=== PATIENT | female | born 1995 | race Caucasian/White ===

== ENCOUNTER 2021-09-13 13:32 | Emergency (ER) | payer SELFPAY ==
[2021-09-13 14:10] VITALS: BP 115/75; PULSE 88; RESP 18; TEMP 36.9; O2SAT 100; BMI 34.9
[2021-09-13 15:03] LABS: Influenza A PCR POSITIVE (Negative); Influenza B PCR NEGATIVE (Negative); Resp Syncy Virus RNA Qual PCR NEGATIVE (Negative); SARS COV2 PCR INHOUSE NEGATIVE (Negative)
--- NOTE | 2021-09-13 15:32 | ED_ITS ---
HPI - URI/Sore Throat General Chief Complaint: Upper Respiratory Symptoms Stated Complaint: body aches, cough Time Seen by Provider: 09/13/21 15:10 Source: patient Mode of arrival: ambulatory Limitations: no limitations History of Present Illness HPI Narrative: 25-year-old female here with 3 days of nasal congestion, cough, wheezing. Patient feels body aches but no fevers, no chills, no abdominal pain or vomitin g. No shortness of breath or chest pain. Patient did not receive a flu vaccine. She is a smoker Related Data Previous Rx's Medication Instructions Recorded oseltamivir 75 mg capsule (Tamiflu) 75 mg PO BID 5 Days #10 cap 09/13/21 Allergies Allergy/AdvReac Type Severity Reaction Status Date / Time No Known Allergies Allergy Verified 09/13/21 15:19 Review of Systems Review of Systems: Yes all other systems are reviewed and are negative Constitutional: Constitutional: Reports no additional constitutional complaints, Reports body ache(s), Denies chills, Denies fever(s), Denies headache(s) and Denies weakness Eyes: Eyes: Reports no additional eye complaints and Denies change in vision ENT: Reports system reviewed and no additional complaints, except as documented, Denies dizziness, Denies headache(s), Reports nasal congestion, Denies nasal discharge and Denies neck pain Cardiovascular: Cardiovascular: Reports no additional cardiovascular complaints, Denies chest pain, Denies leg edema and Denies dyspnea Respiratory: Respiratory: Reports no additional respiratory complaints, Reports cough, Denies dyspnea and Reports wheezing Gastrointestinal: Gastrointestinal: Reports no additional gastrointestinal complaints, Denies abdominal pain, Denies diarrhea, Denies nausea and Denies vomiting Genitourinary: Genitourinary: Reports no additional female genitourinary complaints and Denies urinary incontinence Musculoskeletal: Musculoskeletal: Reports no additional musculoskeletal complaints, Denies back pain, Denies arthralgias, Denies joint swelling, Denies neck pain, Denies numbness and Denies tingling Integumentary/Breasts: Skin/Breast: Reports system reviewed and no additional complaints, except as docu and Denies rash Neurologic: Denies Abnormal speech present, Denies dizziness, Denies headache(s), Denies numbness, Denies tingling and Denies weakness Allergic/Immunologic: Allergic/Immunologic: Reports wheezing PMFSH Past Medical History Attestation statement: The following information was validated with the patient. Source: old records reviewed and nursing notes reviewed Social History Social History Advance Directives: No Advance Directives Information Provided: No Physical Exam Vital Signs: Vital Signs: Last Vital Signs Temp 98.4 F 09/13/21 14:10 Pulse 88 09/13/21 14:10 Resp 18 09/13/21 14:10 BP 115/75 09/13/21 14:10 Pulse Ox 100 09/13/21 14:10 BMI result Body Mass Index 34.9 Const: General: cooperative, healthy appearing, comfortable and no acute distress Orientation/consciousness: patient oriented x3 Limitations: no limitations HEENT: Head: Yes normal to inspection Ears: hearing grossly normal bilaterally General nose exam: Normal external nose present Face and sinus: Yes normal facial exam Mouth: Normal oral and palatal mucosa present Throat: Yes posterior oropharynx normal Eyes: General: appearance normal, both eyes and all related structures Pupils: Equal, round and reactive pupils present Neck: Neck: Yes normal visual inspection Chest: Chest palpation & inspection: normal inspection of the chest Resp: Other: Mild expiratory wheezing Effort & Inspection: normal respiratory effort Cardio: Rate: regular rate Rhythm: regular rhythm Peripheral pulses: Peripheral pulses 2+ throughout GI: Inspection: Yes normal to inspection Palpation (GI): Soft to palpation and nontender Auscultation: normal bowel sounds Back/Spine/Pelvis: Thoracic/Lumbar Spine: thoracic and lumbar spine normal to inspection Skin: General skin exam: no rashes or lesions noted Neuro: General: patient oriented x3, no focal motor deficits and normal sensation to monofilament Cranial nerves: Yes Equal, round and reactive pupils present Cognition (Neuro): normal cognition Speech: No Abnormal speech present Gait exam (Neuro): Normal gait present Motor exam (neuro): 5/5 motor strength present throughout Extrem: General: Yes normal to inspection Course Course Course Narrative: 25-year-old female here with 3 days of URI symptoms. Vitals are stable. Patient has mild expiratory wheezing on exam. She has improvement with albuterol MDI. Her flu screen is positive for influenza A. All other testing is negative. Will discharge patient on Tamiflu for 5 days. Reviewed worrisome signs and symptoms of when to return to the emergency department. Comfortable discharge home. MDM - URI/Sore Throat Medical Records Attestation: I reviewed the patient's medical records. Lab Data Attestation: I reviewed the patient's lab results. Labs: Lab Results 09/13/21 Range/Units 14:15 Influenza Type A (PCR) POSITIVE A (Negative) Influenza Type B (PCR) NEGATIVE (Negative) RSV RNA Qual (PCR) NEGATIVE (Negative) SARS-CoV-2 RNA (RT-PCR) NEGATIVE (Negative) Discharge Plan Discharge Clinical Impression: Influenza Patient Disposition: Home, Self-Care Instructions: Influenza (ED) Additional Instructions: Motrin or tylenol for pain or fever Increase fluids, rest Use albuterol 2 puffs every 4-6 hours as needed Prescriptions: New oseltamivir [Tamiflu] 75 mg capsule 75 mg PO BID 5 Days Qty: 10 0RF Referrals: Physician,None [Primary Care Provider] - Stand Alone Forms: Work/School Release Interventions: ED Discharge Assessment Last Done: 09/13/21 15:39 Discharge Date/Time: 09/13/21 15:40
[2021-09-13] MEDS: Albuterol Sulfate 90 MCG 8 GM INHALER 2 PUFF INHALE (15:33)
--- NOTE | 2021-09-13 15:38 | PC.NURSE ---
patient educated on proper use of neb inhaler , patient was able to demonstrate back proper use of treatment prior to discharge .
== END 2021-09-13 15:40 | disposition home or self-care (01) ==
PROVIDERS: Emergency Provider Emergency Medicine
DX: J11.1 Influenza due to unidentified influenza virus with other respiratory manifestations (principal); M79.10 Myalgia, unspecified site; F17.200 Nicotine dependence, unspecified, uncomplicated; Z20.822 Contact with and (suspected) exposure to COVID-19
CPT/HCPCS: 0241U; 99282; 99284

== ENCOUNTER 2022-08-14 13:53 | Emergency (ER) | payer SELFPAY ==
[2022-08-14 14:21] VITALS: BP 128/97; PULSE 81; RESP 17; TEMP 36.6; O2SAT 99; BMI 35.9
--- NOTE | 2022-08-14 14:23 | ED_ITS ---
HPI - General Adult General Chief complaint: Upper Respiratory Symptoms <Celestino Roberto - Last Filed: 08/14/22 14:24> Stated complaint: Sore throat <Celestino Roberto - Last Filed: 08/14/22 14:24> Time Seen by Provider: 08/14/22 14:34 <Celestino Roberto - Last Filed: 08/14/22 14:24> History of Present Illness HPI narrative: Patient complains of sore throat hoarse voice and some tooth discomfort for 10 days It hurts to swallow but she is able to swallow there is no difficulty breathing, she does not think she has had any fever no chills no headache no stiff neck no chest pain no shortness of breath no wheezing no sputum no abdominal pain no nausea vomiting or diarrhea <YASIR Evans - Last Filed: 08/14/22 19:37> Related Data Home medications: Previous Rx's Medication Instructions Recorded oseltamivir 75 mg capsule (Tamiflu) 75 mg PO BID 5 days #10 caps 09/13/21 amoxicillin 500 mg tablet 500 mg PO TID 7 days #21 tabs 08/14/22 ibuprofen 600 mg tablet 600 mg PO Q6H PRN fever or pain 08/14/22 #20 tabs prednisone 20 mg tablet 60 mg PO DAILY 2 days #6 tabs 08/14/22 <Celestino Roberto - Last Filed: 08/14/22 14:24> Allergies/adverse reactions: Allergies Allergy/AdvReac Type Severity Reaction Status Date / Time No Known Allergies Allergy Verified 08/14/22 14:21 <Celestino Roberto - Last Filed: 08/14/22 14:24> [facility] Past Medical History Source: nursing notes reviewed <YASIR Evans - Last Filed: 08/14/22 19:37> Social History Social History: Social History Advance Directives: No Advance Directives Information Provided: No <Celestino Roberto - Last Filed: 08/14/22 14:24> Physical Exam ED Vital Signs: Vital Signs - 24 hr 08/14/22 14:21 Temperature 98 F Pulse Rate 81 Respiratory Rate 17 Blood Pressure 128/97 H Pulse Oximetry 99 Oxygen Delivery Method Room Air BMI result Body Mass Index 35.9 <Celestino Roberto - Last Filed: 08/14/22 14:24> Vital Signs - 24 hr 08/14/22 14:21 Temperature 98 F Pulse Rate 81 Respiratory Rate 17 Blood Pressure 128/97 H Pulse Oximetry 99 Oxygen Delivery Method Room Air BMI result Body Mass Index 35.9 <YASIR Evans - Last Filed: 08/14/22 19:37> General appearance no acute distress the eyes no redness or discharge Sinuses are nontender The pharynx there is very mild erythema there is no swelling of tonsils no exudate, voice was mildly hoarse, no drooling no trismus, uvula midline Dental exam there is tenderness to the right lower molar, there is no fluctuant abscess on the gum, there is no trismus, patient can open mouth fully There is no redness to the mandible area or to the face, no facial swelling Neck is supple Chest is clear to auscultation bilateral full symmetric equal breath sounds Heart no murmur Abdomen soft nontender Extremities for range of motion x4 Skin no rash <YASIR Evans - Last Filed: 08/14/22 19:37> Course Course Course Narrative: 26-year-old female presents for evaluation of sore throat, congestion. Patient is afebrile in triage. She is managing her secretions. Plan for strep test and viral swell <Celestino Roberto - Last Filed: 08/14/22 14:24> 26-year-old female presents for evaluation of sore throat, congestion. Patient is afebrile in triage. She is managing her secretions. Plan for strep test and viral swell Strep test was negative, COVID and flu tests were negative No evidence of abscess or any serious infection in the throat There was tenderness when the right lower molars were tapped so possible dental infection as well so patient is treated with amoxicillin for possible dental infection and with Motrin and steroid for the prolonged sore throat and laryngitis Patient tolerates p.o. and was well appearing and was discharged <YASIR Evans - Last Filed: 08/14/22 19:37> Medications Administered Discontinued Medications Generic Name Dose Route Start Last Admin Trade Name Freq PRN Reason Stop Dose Admin Dexamethasone 10 mg 08/14/22 16:05 08/14/22 16:15 Dexamethasone 2 Mg Tablet PO 08/14/22 16:06 10 mg ONCE ONE Administration Ibuprofen 600 mg 08/14/22 16:05 08/14/22 16:14 Ibuprofen 600 Mg Tablet PO 08/14/22 16:06 600 mg ONCE ONE Administration <Celestino Roberto - Last Filed: 08/14/22 14:24> Medications Administered Discontinued Medications Generic Name Dose Route Start Last Admin Trade Name Yodit PRN Reason Stop Dose Admin Dexamethasone 10 mg 08/14/22 16:05 08/14/22 16:15 Dexamethasone 2 Mg Tablet PO 08/14/22 16:06 10 mg ONCE ONE Administration Ibuprofen 600 mg 08/14/22 16:05 08/14/22 16:14 Ibuprofen 600 Mg Tablet PO 08/14/22 16:06 600 mg ONCE ONE Administration <YASIR Evans - Last Filed: 08/14/22 19:37> Medical Decision Making Lab Data Labs: Lab Results 08/14/22 08/14/22 08/14/22 Range/Units 14:26 14:26 14:26 COVID-19 (MANAN) Negative (Negative) COVID-19 Clin Com See Note Influenza Type A (LUCIO) Negative (Negative) Influenza Type B (LUCIO) Negative (Negative) Influenza A & B Note See Note S. pyogenes GrpA LUCIO Negative (Negative) <Celestino Roberto - Last Filed: 08/14/22 14:24> Lab Results 08/14/22 08/14/22 08/14/22 Range/Units 14:26 14:26 14:26 COVID-19 (MANAN) Negative (Negative) COVID-19 Clin Com See Note Influenza Type A (LUCIO) Negative (Negative) Influenza Type B (LUCIO) Negative (Negative) Influenza A & B Note See Note S. pyogenes GrpA LUCIO Negative (Negative) <YASIR Evans - Last Filed: 08/14/22 19:37> Discharge Plan Discharge Clinical Impression: Pharyngitis, Dental caries <Celestino Roberto - Last Filed: 08/14/22 14:24> Patient Disposition: Home, Self-Care <Celestino Roberto - Last Filed: 08/14/22 14:24> Additional Instructions: Strep test COVID test and flu test were all negative Symptoms of sore throat and laryngitis for 10 days may be relieved with steroids so we are doing a couple of days of steroid, breathing steam and drinking warm fluids may Arias the throat Sore throat and hoarse voice are likely from a virus If not improved with this treatment follow with your doctor next week for re- evaluation For the teeth we are writing amoxicillin antibiotic and recommend follow-up with a dentist for possible dental infection Return to the ER any time any worse condition or any concerns <Celestino Roberto - Last Filed: 08/14/22 14:24> Prescriptions: New prednisone 20 mg tablet 60 mg PO DAILY 2 Days Qty: 6 0RF amoxicillin 500 mg tablet 500 mg PO TID 7 Days Qty: 21 0RF ibuprofen 600 mg tablet 600 mg PO Q6H PRN (Reason: fever or pain) Qty: 20 0RF No Action oseltamivir [Tamiflu] 75 mg capsule 75 mg PO BID 5 Days Qty: 10 0RF <Celestino Roberto - Last Filed: 08/14/22 14:24> Stand Alone Forms: Work/School Release <Celestino Roberto - Last Filed: 08/14/22 14:24> Interventions: ED Discharge Assessment Last Done: 08/14/22 16:21 <Celestino Roberto - Last Filed: 08/14/22 14:24> Discharge Date/Time: 08/14/22 16:22 <Celestino Roberto - Last Filed: 08/14/22 14:24>
[2022-08-14 14:45] LABS: IDNOW Serial# 08D9AD1C; Strep A Nucleic Acid Negative (Negative)
[2022-08-14 14:49] LABS: COVID-19 Test Negative (Negative); IDNOW Serial# 08D9AD1C; IDNOW Serial# BCCEAD1C; Influenza A Negative (Negative); Influenza B2 Negative (Negative)
[2022-08-14] MEDS: Ibuprofen 600 MG TABLET PO (16:14)
[2022-08-14] MEDS: dexAMETHasone 2 MG TABLET 10 MG PO (16:15)
== END 2022-08-14 16:22 | disposition home or self-care (01) ==
PROVIDERS: Physician Assistant; Emergency Provider Emergency Medicine Emergency Medical Services
DX: J02.8 Acute pharyngitis due to other specified organisms (principal); K02.9 Dental caries, unspecified; Z79.899 Other long term (current) drug therapy; Z20.822 Contact with and (suspected) exposure to COVID-19; Z20.828 Contact with and (suspected) exposure to other viral communicable diseases
CPT/HCPCS: 87502; 87635; 87651; 99283; J8540

== ENCOUNTER 2022-12-21 18:10 | Emergency (ER) | payer SELFPAY ==
[2022-12-21 19:04] VITALS: BP 141/83; PULSE 83; RESP 18; TEMP 37.2; O2SAT 98; BMI 36.1
--- NOTE | 2022-12-21 19:13 | ED_ITS ---
HPI - Dental/Oral General Chief complaint: Dental/Oral Stated complaint: tooth pain,swollen cheek Time Seen by Provider: 12/21/22 19:28 Source: patient Mode of arrival: ambulatory Limitations: no limitations History of Present Illness HPI Narrative: Patient is a 27-year-old female who presents emergency department for evaluation of left upper frontal dental pain. She reports to fractured tooth approximately 2 months ago for which she has not seen a dental provider for. This morning she woke with pain and mild swelling. She has not taken any [id number] medication for this. She denies any fevers, chills, drainage. Denies any neck pain, chest pain, shortness of breath. Related Data Previous Rx's Medication Instructions Recorded oseltamivir 75 mg capsule (Tamiflu) 75 mg PO BID 5 days #10 caps 09/13/21 amoxicillin 500 mg tablet 500 mg PO TID 7 days #21 tabs 08/14/22 ibuprofen 600 mg tablet 600 mg PO Q6H PRN fever or pain 08/14/22 #20 tabs prednisone 20 mg tablet 60 mg PO DAILY 2 days #6 tabs 08/14/22 amoxicillin 875 mg-potassium 1 tab PO BID #13 tabs 12/21/22 clavulanate 125 mg tablet Allergies Allergy/AdvReac Type Severity Reaction Status Date / Time No Known Allergies Allergy Verified 08/14/22 14:21 Review of Systems Review of Systems: Constitutional : No Fever, No Chills, No changes in PO intake, No difficulty speaking,? no recent dental procedure, no heat or cold intolerance while eating, no recent face trauma, ENT/Mouth : No swallowing difficulty, no change in voice, No jaw pain, No facial swelling, no drooling, no trismus, no bleeding, no throat swelling, no lacerations, no tongue swelling, gum swelling, Eyes: No Eye Pain, No periorbital Swelling Cardiovascular : No Chest Pain, No SOB Respiratory : No Cough, No Sputum, No Wheezing, No Smoke Exposure, No Dyspnea Gastrointestinal : No Nausea, No Vomiting, No Diarrhea Genitourinary : No Dysuria Musculoskeletal : No Myalgias Skin : No rash, no facial swelling or redness, Neuro : No Weakness, No Numbness, No Headache Yes all other systems are reviewed and are negative PMFSH Past Medical History Attestation statement: The following information was validated with the patient. Source: old records reviewed Physical Exam Vital Signs: Vital Signs: Last Vital Signs Temp 98.9 F 12/21/22 19:04 Pulse 83 12/21/22 19:04 Resp 18 12/21/22 19:04 BP 141/83 H 12/21/22 19:04 Pulse Ox 98 12/21/22 19:04 O2 Del Method Room Air 12/21/22 19:04 BMI result Body Mass Index 36.1 Appearance: Alert. Oriented X3. No acute distress. Head: Normal external exam. Normocephalic. Atraumatic. Eyes: PERRLA. EOMI. Conjunctiva and sclera normal. Eyelids normal. ENT: EAC normal. TM's Normal. Pharynx normal. Uvula midline. Moist mucous membranes.? ?No trismus noted.? No drooling noted.? No muffled voice noted. Dentition:? Patient with poor dentition throughout with multiple old fractured teeth with multiple dental caries.? Gingival within normal limits.? No fluctuance.? Not consistent with peritonsillar abscess. Not consistent with dental abscess.? No salivary duct obstruction noted. Neck: Normal inspection. Neck supple. FROM. No adenopathy. Thyroid Normal. No meningeal signs. No neck mass noted.? Trachea midline. CVS: Normal heart rate and rhythm. Heart sound normal. No murmurs noted. Pulses normal throughout. Respiratory: No respiratory distress. Painless inspiration. Breath sounds normal. No wheezes/rales/rhonchi noted. Chest nontender. ?No accessory muscle usage noted or decreased air movement noted. Back:? Full range of motion noted. Skin: Skin warm and dry.? Normal skin color.? Normal skin turgor. No rashes/lesions/lacerations noted. Extremities: Extremities exhibit normal range of motion.? Extremities nontender. Neuro: Oriented X 3.? No motor deficit.? No sensory deficit.? Reflexes normal. Course Course Course Narrative: This is an RME: Additional HPI, ROS, PE not included below will be deferred to primary provider. This is a [id number] presenting to the emergency department with complaints of left dental pain. She fractured 2-3 months ago prior to arrival. She woke up this morning with left sided dental pain and left sided facial swelling. No fevers or chills. VSS. Plan: Further ER evaluation needed. Medical Decision Making Medical Decision Making [facility] Narrative: Patient is a 27-year-old female presents emergency department for evaluation of dental pain. At the time of my examination she is overall well-appearing, nontoxic, afebrile without tachycardia. No apparent respiratory distress. No evidence of abscess upon examination, he is tolerating secretions, no trismus, no submental firmness. No evidence of Renan's angina. Discussed plan of care for discharge home, received 1st dose of Augmentin in the emergency department and sent prescription to pharmacy, advised outpatient follow-up with dental provider. All questions were answered. Discussed worrisome signs and symptoms that would warrant re-evaluation Differential Diagnosis Differential Diagnoses: The differential diagnosis associated with the presentation includes (As noted above) External Record Review External record reviewed: Outpatient record Prescription Management I considered prescription management with: Antibiotic Discharge Plan Discharge Clinical Impression: Toothache Patient Disposition: Home, Self-Care Instructions: Toothache (ED) Additional Instructions: You received the 1st dose of antibiotic while in the emergency department today, please worm picker the remainder of your prescription from the pharmacy t You can take ibuprofen 200 mg, 3 tablets (600mg) every 6-8 hours as needed for pain, in addition to Tylenol 500 mg, 2 tablets (1,000mg) every 4-6 hours as needed for pain, but not to exceed 3 doses daily (3,000mg).? Prescriptions: New amoxicillin-pot clavulanate 875-125 mg tablet 1 tab PO BID Qty: 13 0RF No Action oseltamivir [Tamiflu] 75 mg capsule 75 mg PO BID 5 Days Qty: 10 0RF prednisone 20 mg tablet 60 mg PO DAILY 2 Days Qty: 6 0RF amoxicillin 500 mg tablet 500 mg PO TID 7 Days Qty: 21 0RF ibuprofen 600 mg tablet 600 mg PO Q6H PRN (Reason: fever or pain) Qty: 20 0RF Referrals: Physician,None [Primary Care Provider] -
[2022-12-21] MEDS: Amoxicillin/Potassium Clav 875 MG TABLET PO (20:13)
--- NOTE | 2022-12-21 20:14 | PC.NURSE ---
pt medicated per MAR-pt discharged
== END 2022-12-21 20:16 | disposition home or self-care (01) ==
PROVIDERS: Emergency Provider Emergency Medicine
DX: K08.89 Other specified disorders of teeth and supporting structures (principal)
CPT/HCPCS: 99283; 99284